=== PATIENT | female | born 1960 | race Caucasian/White ===

== ENCOUNTER 2016-12-05 10:00 | Inpatient (IN) ==
[2016-12-05] MEDS ORDERED: TYLENOL PO ONE (10:11)
[2016-12-05] MEDS ORDERED: NS 1,000 ML IV ONE ×2 (10:11→10:30)
[2016-12-05] MEDS ORDERED: MORPHINE IV ONE (10:30)
[2016-12-05] MEDS ORDERED: ZOFRAN IV ONE (10:30)
--- NOTE | 2016-12-05 10:52 | Diag Imaging Result Doc PS360 ---
FLAT/UPRIGHT ABD/1 VIEW CHEST - 12/05/2016 INDICATION: Abd pain with fever TECHNIQUE: Three views COMPARISON: 10/20/2013 FINDINGS: The chest is clear. There is a nonobstructive bowel gas pattern. No free air or abnormal calcifications. IMPRESSION: Negative exam. Electronically signed by Wilfred Babb 12/05/2016 10:50 AM
[2016-12-05 11:13] LABS: URINE CULTURE NEEDED? NO; URINE MICRO REVIEW NEEDED? NO; URINE SOURCE CLEAN CATCH
[2016-12-05 11:18] LABS: BILIRUBIN URINE NEGATIVE (NEGATIVE); BLOOD URINE NEGATIVE (NEGATIVE); GLUCOSE URINE NEGATIVE (NEGATIVE); LEUKOCYTES URINE NEGATIVE (NEGATIVE); NITRITE URINE NEGATIVE (NEGATIVE); PROTEIN URINE NEGATIVE (NEGATIVE); TURBIDITY URINE CLEAR (CLEAR); UROBILINOGEN URINE NORMAL (NORMAL)
[2016-12-05 11:25] LABS: AGAP 18; ALBUMIN 3.7 g/dL (3.5-5.0); ALKALINE PHOSPHATASE 140 U/L (32-104); AMYLASE 727 U/L (20-200); BUN 2 mg/dL (8-22); CHLORIDE 79 mmol/L (98-107); COSMO 238; GOT 64 U/L (10-30); GPT 19 U/L (10-36); LIPASE 297 U/L (13-60); POTASSIUM 4.1 mmol/L (3.5-5.1); TCO2 23 mmol/L (25-35); TOTAL BILIRUBIN 0.37 mg/dL (0.20-1.00)
[2016-12-05 11:42] LABS: SODIUM 120 mmol/L (136-145)
[2016-12-05 12:02] LABS: COLOR YELLOW; SP GRAVITY URINE 1.001
[2016-12-05 12:05] LABS: BASO% 0.8 % (0.0-0.8); EOS# 0.04 X1000 (0.0-0.7); EOS% 0.6 % (0.0-10.0); HEMATOCRIT 31.2 % (37.0-47.0); HEMOGLOBIN 10.4 g/dL (12.0-16.0); LYMPH# 0.54 X1000 (1.2-3.4); LYMPH% 7.4 % (20.5-51.1); MANUAL DIFF NEEDED? NO; MCH 26.2 PG (27-31); MCHC 33.3 g/dL (33-37); MCV 78.6 FL (81-99); MONO# 0.88 X1000 (0.11-0.59); MONO% 12.1 % (1.7-9.3); MPV 9.4 FL (7.4-10.4); NEUT% 79.1 % (42.2-75.2); PLT 209 X1000 (130-400); RBC 3.97 XMIL (4.2-5.4)
[2016-12-05 12:08] LABS: UR EPITHELIAL CELLS <10 /HPF (<10); URINE BACTERIA NEGATIVE /HPF; URINE RBC <10 /HPF (<10); URINE WBC <10 /HPF (<10)
--- NOTE | 2016-12-05 12:39 | Diag Imaging Result Doc PS360 ---
CT ABD/PELVIS W/ IV CONT ONLY - 12/05/2016 INDICATION: Abd pain TECHNIQUE: A CT dose reduction protocol was used. COMPARISON: None FINDINGS: The lung bases are clear and the heart size is normal. There is fatty change of the liver. The liver is also somewhat atrophic. No liver masses. There is [id number] ascites. Spleen size is normal. There is a small cystic area at the uncinate process of the pancreas measuring 11 mm. This is nonspecific. No biliary dilation. The gallbladder, adrenals, and kidneys are normal. There are a couple of small 1 cm enhancing nodules at the uterine fundus. The uterus is otherwise atrophic and unremarkable. Urinary bladder and rectum are normal. There are moderate degenerative changes of the spine. No acute or suspicious bony lesion. IMPRESSION: 1. Small to moderate ascites. 2. Very fatty, mildly atrophic liver. 3. Tiny cystic area in the pancreatic uncinate process, nonspecific. 4. Tiny enhancing nodules at the uterine fundus. Electronically signed by Wilfred Babb 12/05/2016 12:37 PM
--- NOTE | 2016-12-05 13:17 | PROVIDER DOCUMENTATION ---
This chart was entered by Loren Nicholson Scribe, acting as scribe for Bárbara Hunter MD. HPI-Abdominal Pain/GI Problem - General Chief Complaint: Possible Sepsis-D Stated Complaint: LOWER ABD PAIN Time Seen by Provider: 12/05/16 10:09 Source: patient Allergies/Adverse Reactions: Patient Allergies Allergy/AdvReac Type Severity Reaction Status Date / Time Penicillins Allergy Unknown "NIRAV SAID Verified 05/02/15 16:16 DON'T TAKE" Home Medications: Home Medication List Medication Instructions Recorded Confirmed Last Taken Type Ibuprofen [Motrin] 600 mg PO Q8H PRN PRN #30 tablet 05/02/15 12/05/16 Unknown Rx Omeprazole [Prilosec] 20 mg PO DAILY 05/02/15 12/05/16 05/02/15 07:00 History - History of Present Illness-ABD Nature of Presenting Problems: 56 yo F presents to the ER with complaint of abdominal swelling, fever, and abdominal pain x 2 days. Sister reports pt having a similar episode in October and again x2 weeks ago. Denies any urinary symptoms, CP, or SOB. Has a hx of IBS but states this does not feel typical to that. Abdominal Pain Onset Location: reports: generalized abdomen Pain Radiation: reports: no radiation Onset/Duration: reports: 2 days ago Timing: reports: still present Review of Systems - Adult - REVIEW OF SYSTEMS - ADULT Constitutional: denies: chills, fever Eyes: reports: no symptoms reported Ears, Nose, Mouth & Throat: reports: no symptoms reported Cardiovascular: denies: chest pain, palpitations Respiratory: denies: cough, shortness of breath Gastrointestinal: reports: abdominal pain. denies: diarrhea, nausea, vomiting Genitourinary: denies: dysuria, hematuria Musculoskeletal: reports: no symptoms reported Integumentary: reports: no symptoms reported Neurological: reports: no symptoms reported Psychiatric: reports: no symptoms reported Endocrine: reports: no symptoms reported Hematologic/Lymphatic: reports: no symptoms reported Allergic/Immunologic: reports: no symptoms reported All Other Systems: Reviewed and Negative Past History - Adult - PAST MEDICAL HISTORY-ADULT Review of Records: reports: Nursing Assessment Review, Medications Reviewed Respiratory: reports: COPD Gastrointestinal: reports: GERD, IBS - IMMUNIZATION STATUS Childhood Immunizations: See Nurse Assessment Flu Vaccine: See Nurse Assessment - SOCIAL HISTORY Smoking: greater than 1 pack/day Provider spent 3-5 mins advising pt. on dangers of tobacco.: Discussed manners to quit use, and f/u contacts for add'l counseling. Substance Use: alcohol Alcohol Use Frequency: every day Number of drinks per typical drinking period:: 11-15 drinks ("1/2 case a day") Physical Exam-General - PHYSICAL EXAM-ADULT Initial Vital Signs Reviewed: Yes - CONSTITUTIONAL General Appearance: alert, no apparent distress - EYES Eyes: PERRL/EOMI, pink conjunctivae - HEAD, EARS, NOSE, MOUTH & THROAT HENMT: normocephalic/atraumatic, normal ENT inspection - NECK Neck: supple, normal inspection - RESPIRATORY Respiratory: no respiratory distress, no accessory muscle use - CARDIOVASCULAR Cardiovascular: normal peripheral pulses, regular rate, rhythm - GASTROINTESTINAL (ABDOMEN) Abdominal Exam: abnormal bowel sounds (hypoactive), distended, tenderness ( generalized) - MUSCULOSKELETAL Back Exam: no CVA tenderness, no vertebral tenderness Extremity: normal gait, normal inspection - SKIN Integumentary: normal color, warm/dry - NEUROLOGIC Neurologic: grossly normal, no motor/sensory deficits - PSYCHIATRIC Psych/Mental Status: normal mood/affect, normal thought content, normal thought process, oriented x 3 Progress - PLAN OF CARE/RESULTS Progress/Plan/Lab Results: Vital Signs - 8 hr 12/05/16 10:02 Temperature 99.9 F H Pulse Rate 120 H Respiratory Rate 20 Blood Pressure 147/95 O2 Sat by Pulse Oximetry 96 Orders Category Date Time Status Saline Loc DIRECTED Care 12/05/16 10:11 Active NPO Diet 12/05/16 10:[address] ABD/PELVIS W/ IV CONT ONLY [CT] Stat Exams 12/05/16 10:30 Ordered FLAT/UPRIGHT ABD/1 VIEW CHEST [RAD] Stat Exams 12/05/16 10:11 Ordered AMYLASE [CHEM] Stat Lab 12/05/16 10:41 Ordered BLOOD CULTURE [BLDCUL] Stat Lab 12/05/16 10:11 Uncollected CBC WITH ELECTRONIC DIFF [HEME] Stat Lab 12/05/16 10:41 Ordered COMPREHENSIVE METABOLIC PANEL [CHEM] Stat Lab 12/05/16 10:41 Ordered LACTATE, PLASMA [CHEM] Stat Lab 12/05/16 10:41 Ordered LIPASE [CHEM] Stat Lab 12/05/16 10:41 Ordered PRO B-NATRIURETIC PEPTIDE Stat Lab 12/05/16 10:41 Ordered TROPONIN T Stat Lab 12/05/16 10:41 Ordered URINALYSIS W/POSS RFLX CULT-1 [URINALYSIS] Stat Lab 12/05/16 10:11 Uncollected 0.9% Sodium Chloride Inj [Ns] 1,000 ml Med 12/05/16 10:30 Active IV 150 mls/hr 0.9% Sodium Chloride Inj [Ns] 1,000 ml Med 12/05/16 10:11 Active IV 999 mls/hr Acetaminophen [Tylenol] Med 12/05/16 10:11 Discontinued 1,000 mg PO NOW ONE Morphine Med 12/05/16 10:30 Discontinued 4 mg IV NOW ONE Ondansetron [Zofran] Med 12/05/16 10:30 Discontinued 4 mg IV NOW ONE Result Diagrams: 12/05/16 10:35 12/05/16 10:35 - XRAY 1 XRAY Study: Chest, Abdomen Impression: Normal (negative, per radiologist) - CT/MRI 1 CT Study: Abdomen Impression: Abnormal (small to moderate ascites. very fatty, mildly atrophic liver. tiny cystic area int he pancreatic uncinate process, nonspecific. tiny enhancing nodules at the uterine fundus. per radiologist.) - CONSULTS/PCP/HOSPITALIST Notification #1 *Consult/PCP/Hospitalist*: Mindy/Dr. Garcia Time Discussed: 13:17 Consult Disposition: Will see in ED, Admit Departure - Departure Date of Disposition Decision: 12/05/16 Time of Disposition Decision: 13:12 DIAGNOSIS: Hyponatremia, Pancreatitis, ETOH abuse Disposition: ADMITTED INPATIENT 09 Certified Medical Emergency: Emergent Condition: Stable Referrals and Follow-Ups: None,PCP [Primary Care Provider] - - Critical Care Note This patient required my direct & personal management of CC.: Yes Total Time (mins): 30 Critical Care Statement: This patient required my direct personal management to treat or rule out processes, the absence of which, could potentiallly result in sudden, clinically significant life or limb threatening deterioration. This chart was documented by the indicated scribe, (Loren Nicholson Scribe) and accurately reflects the services I performed and decisions made by me, Bárbara Hunter MD, as attested by the provider's signature.
[2016-12-05] MEDS ORDERED: ATIVAN IV ONE (13:18)
[2016-12-05] MEDS ORDERED: M.V.I.-12 10 ML, FOLIC ACID 1 MG, MAGNESIUM SULFATE 1 GM, THIAMINE 100 MG in NS 1,000 ML IV SCH (14:45)
[2016-12-05] MEDS ORDERED: M.V.I.-12 10 ML, FOLIC ACID 1 MG, MAGNESIUM SULFATE 1 GM, THIAMINE 100 MG in NS 1,000 ML IV ONE (15:00)
--- NOTE | 2016-12-05 15:01 | HISTORY AND PHYSICAL ---
HISTORY OF PRESENT ILLNESS: This is a 56-year-old white female. She states for 10 years now she has drank a half case a day beer. Smokes about 1-1/2 packs. She was here 2 years ago on 10/19/2013. At that time she had nausea and vomiting, shortness of breath. I think they did an EGD, found a hiatal hernia and told she may have early cirrhosis. She had hyponatremia at that time too. PAST MEDICAL HISTORY: COPD, alcoholic, mild cirrhosis at least that was report and gastroesophageal reflux disease. Only surgeries she has had a . ALLERGIES: No known drug allergies. MEDICATIONS: She is on omeprazole, that is her only medication. FAMILY HISTORY: Sister of breast cancer. Mother of ovarian cancer. She has history of lung cancer, sister with breast cancer. SOCIAL HISTORY: Works at a [employer]. She has been hurting now for 2 months off and on the epigastrium, came to emergency room, found elevated amylase and lipase, also hyponatremia and consistent with acute pancreatitis. REVIEW OF SYSTEMS: General: She does not notice any weight gain or loss. No fever, chills. HEENT: Unremarkable. Respiratory: No increased work of breathing or dyspnea. Cardiovascular: No chest pain or tachy palpitation. GI/: She has abdominal pain and some nausea. No melena or gross hematuria. Endocrinologic/hematologic: No significant . EXAM: Vital Signs: Temperature 98.8 degrees, pulse 89, respirations 16, blood pressure 129/84. HEENT: Pupils are equal, round. Lungs: Clear in all lung healy. Cardiovascular: Regular rhythm, rate without murmur or S3. Abdomen: Soft, tender in the epigastric, left upper quadrant, belly slightly with some guarding. Skin: Warm and dry. Extremities: No pedal edema. Weight 125 pounds, height 5 feet 5 inches. LAB WORK: White count 7260, hematocrit 31, platelet count 209,000. Sodium 120, potassium 4.1, chloride 79, bicarb 23, BUN 2, creatinine 0.4, blood sugar 96, AST 64, ALT is 19, alkaline phosphatase 140, albumin 3.7, amylase 727, lipase 297, lactate levels 1.3. Urinalysis unremarkable. She had an abdominal pelvic CT done, small to moderate ascites, very fatty, mildly atrophic liver, tiny cyst area in the pancreatic uncinate process, nonspecific tiny enhancing nodules in the uterine fundus and abdominal x-ray negative exam. ASSESSMENT AND PLAN: 1. Alcoholic pancreatitis. Hold alcohol, will give her clear liquids. Do not feel she needs an NG tube at this point, give her normal saline, pain control with antiemetics. 2. Hyponatremia secondary to alcoholism. Will give her normal saline run at 85 mL an hour and we will check her urine for sodium, creatinine, osmolality, we will check T4 and TSH, B12 and folate, her magnesium level. 3. Alcohol dependence high probable steinberg of alcohol withdrawal and then even delirium tremens. Will let her have some Librium p.o. q.6 hours p.r.n. and will follow her clinically. 4. History of chronic obstructive pulmonary disease, good air, gas exchange present time, put her on some O2. 5. History of hiatal hernia. Put her on proton pump inhibitor. High probability of gastritis as well. cc: Bruce Garcia MD
[2016-12-05] MEDS ORDERED: LIBRIUM PO PRN (16:34)
[2016-12-05] MEDS ORDERED: ZOFRAN IV PRN (16:34)
[2016-12-05] MEDS ORDERED: NS 1,000 ML IV SCH (16:34)
[2016-12-05] MEDS: NICODERM PATCH TD SCH (16:49)
[2016-12-05] MEDS: ATROVENT NEB INH SCH ×3 (16:59→23:10)
[2016-12-05] MEDS: XOPENEX NEB INH SCH ×3 (16:59→23:11)
[2016-12-05] MEDS: PULMICORT INH SCH (19:31)
[2016-12-05] MEDS: ATIVAN IV PRN (22:29)
[2016-12-06] MEDS: LIBRIUM PO SCH ×5 (01:15→23:10)
[2016-12-06] MEDS: ATIVAN IV PRN ×4 (02:22→20:44)
[2016-12-06] MEDS: ATROVENT NEB INH SCH ×5 (03:56→19:39)
[2016-12-06] MEDS: XOPENEX NEB INH SCH ×5 (03:57→19:39)
[2016-12-06 05:16] LABS: MANUAL DIFF NEEDED? NO
[2016-12-06 05:20] LABS: EOS# 0.08 X1000 (0.0-0.7); EOS% 1.7 % (0.0-10.0); HEMATOCRIT 31.1 % (37.0-47.0); HEMOGLOBIN 10.3 g/dL (12.0-16.0); IMM GRAN# 0.07 X1000 (0.0-0.04); IMM GRAN% 1.5 % (0.0-0.5); LYMPH# 0.64 X1000 (1.2-3.4); LYMPH% 13.4 % (20.5-51.1); MCH 25.8 PG (27-31); MCHC 33.1 g/dL (33-37); MCV 77.9 FL (81-99); MONO# 0.76 X1000 (0.11-0.59); MONO% 15.9 % (1.7-9.3); MPV 9.1 FL (7.4-10.4); NEUT% 66.5 % (42.2-75.2); PLT 213 X1000 (130-400); RBC 3.99 XMIL (4.2-5.4)
[2016-12-06 05:27] LABS: INR 1.13; PTT 32.7 Seconds (22.0-36.0)
[2016-12-06 05:57] LABS: AGAP 14; ALKALINE PHOSPHATASE 115 U/L (32-104); BUN 3 mg/dL (8-22); CHLORIDE 89 mmol/L (98-107); COSMO 253; GOT 39 U/L (10-30); GPT 13 U/L (10-36); MAGNESIUM 1.1 mg/dL (1.5-2.7); POTASSIUM 2.9 mmol/L (3.5-5.1); SODIUM 128 mmol/L (136-145); TCO2 25 mmol/L (25-35); TOTAL BILIRUBIN 0.36 mg/dL (0.20-1.00); TOTAL PROTEIN 7.1 g/dL (6.3-8.3)
[2016-12-06] MEDS: PULMICORT INH SCH ×2 (07:45→19:39)
[2016-12-06] MEDS ORDERED: MAGNESIUM SULFATE 2 GM/S.W.I. 2 GM/50 ML IVPB IV ONE (09:00)
[2016-12-06] MEDS: NICODERM PATCH TD SCH (09:03)
[2016-12-06] MEDS: POTASSIUM CHLORIDE 20 MEQ/SWI 20 MEQ/100 ML IVPB IV SCH ×2 (09:03→11:27)
[2016-12-06] MEDS: PRILOSEC PO SCH (09:04)
[2016-12-06] MEDS: MAG-OX PO SCH ×2 (09:04→20:43)
[2016-12-06] MEDS: KLOR-CON PO SCH (09:04)
--- NOTE | 2016-12-06 09:40 | PROGRESS NOTE ---
DATE: 12/06/2016 SUBJECTIVE: Ms. Caldera is doing a little better. She did get agitated and confused last night. She of course want to go home. She is also asking for food. She still had some tenderness in the epigastrium. PHYSICAL EXAMINATION: Vital Signs: Temperature is 100 degrees, pulse 113, respirations 20, blood pressure 137/82. HEENT: Pupils are equal and round. Lungs: Are clear in all lung healy. Cardiovascular Examination: Regular rhythm and rate without murmur or S3. Abdomen: Soft. She is tender in the epigastrium and the left upper quadrant. Is and Os: Urine output is 3000 L. LABORATORY DATA: White count 4790, hematocrit 31, platelet count 213,000. Sodium 128 which has come up from 120. Potassium 2.9, chloride 89, bicarb 25, BUN 3, creatinine 0.4. Magnesium 1.1, albumin 3. Her transaminase, AST came down from 64 to 39, ALT is 13. ASSESSMENT AND PLAN: 1. Alcoholic pancreatitis. Encouraged her to quit alcohol, stay off alcohol. She is going through some alcohol withdrawal symptoms, although fairly mild at this point. She is approaching a point where she may go into delirium tremens. She does have a little nausea, still has some abdominal pain but she is asking for food. 2. Hyponatremia secondary to alcoholism and poor nutrition. Continue present intravenous fluids. On clear liquids. Probably advance to full liquids tomorrow. Check T4 and TSH. I am not sure if we have those values back yet. TSH was 2.9. Cortisol level looked good at 12.8. 3. History of chronic obstructive pulmonary disease. Good air and gas exchange at this time. 4. History of hiatal hernia. 5. We will supplement some potassium and magnesium today. cc: Bruce Garcia MD
[2016-12-06] MEDS: M.V.I.-12 10 ML, FOLIC ACID 1 MG, MAGNESIUM SULFATE 1 GM, THIAMINE 100 MG in NS 1,000 ML IV SCH (16:56)
[2016-12-07] MEDS: ATIVAN IV PRN ×5 (03:14→23:04)
[2016-12-07] MEDS: XOPENEX NEB INH SCH ×7 (03:26→23:19)
[2016-12-07] MEDS: ATROVENT NEB INH SCH ×7 (03:26→23:19)
[2016-12-07] MEDS: LIBRIUM PO SCH ×4 (05:27→22:28)
--- NOTE | 2016-12-07 05:32 | EKG Report ---
Test Performed on : 12/06/2016 06:23:52 AM Test Reason : chest pain Blood Pressure : / mmHG Vent. Rate : 111 BPM Atrial Rate : 111 BPM P-R Int : 190 ms QRS Dur : 072 ms QT Int : 326 ms P-R-T Axes : 072 054 045 degrees QTc Int : 443 ms Sinus tachycardia. with premature atrial complexes. Anteroseptal infarct , age undetermined Abnormal ECG No previous ECGs available Confirmed by Sonny RODNEY, Jose J Kincaid ([id number]) on 12/08/2016 2:15:12 PM
[2016-12-07 05:46] LABS: AGAP 14; ALKALINE PHOSPHATASE 101 U/L (32-104); AMYLASE 314 U/L (20-200); BUN 1 mg/dL (8-22); CALCIUM 7.9 mg/dL (8.8-10.2); CHLORIDE 87 mmol/L (98-107); COSMO 250; GOT 30 U/L (10-30); GPT 11 U/L (10-36); LIPASE 134 U/L (13-60); MAGNESIUM 1.1 mg/dL (1.5-2.7); SODIUM 126 mmol/L (136-145); TCO2 25 mmol/L (25-35); TOTAL BILIRUBIN 0.29 mg/dL (0.20-1.00); TOTAL PROTEIN 6.7 g/dL (6.3-8.3)
[2016-12-07] MEDS: PULMICORT INH SCH ×2 (07:35→19:55)
[2016-12-07] MEDS ORDERED: MAGNESIUM SULFATE 2 GM/S.W.I. 2 GM/50 ML IVPB IV ONE (08:13)
--- NOTE | 2016-12-07 08:46 | PROGRESS NOTE ---
DATE: 12/07/2016 SUBJECTIVE: Ms. Caldera feels a lot better she says. She is requesting food. No abdominal tenderness right now. OBJECTIVE: Vital Signs: Temperature 100.8 degrees, I think that is her T-max, pulse 127, respirations 18, blood pressure 140/90. Lungs: Clear in all lung healy. Cardiovascular: Regular rhythm and rate, without murmur or S3. Abdomen: Soft. Skin: Warm and dry. Urine output 3 L. LAB: White count 4790, hematocrit 31, platelet count 213,000. Chemistries: Lipase down to 134, amylase 314, we will try a little soft GI diet. ASSESSMENT AND PLAN: 1. Alcoholic pancreatitis. Enzymes coming down. She is very hungry, pain. Will try soft GI diet and see how we do. 2. Hyponatremia secondary alcoholism. Poor nutrition. Sodium 126, potassium 3.0, bicarb 25, creatinine 0.3. We will try a soft GI diet. Gave her potassium and magnesium yesterday. This morning I will give her a little bit magnesium and potassium IV. cc: Bruce Garcia MD
[2016-12-07] MEDS ORDERED: TESSALON PO PRN (08:50)
[2016-12-07] MEDS: KLOR-CON PO SCH (09:09)
[2016-12-07] MEDS: MAG-OX PO SCH ×2 (09:09→21:08)
[2016-12-07] MEDS: PRILOSEC PO SCH (09:09)
[2016-12-07] MEDS: POTASSIUM CHLORIDE 20 MEQ/SWI 20 MEQ/100 ML IVPB IV SCH ×2 (09:10→11:46)
[2016-12-07] MEDS: NICODERM PATCH TD SCH (09:10)
[2016-12-07] MEDS: M.V.I.-12 10 ML, FOLIC ACID 1 MG, MAGNESIUM SULFATE 1 GM, THIAMINE 100 MG in NS 1,000 ML IV SCH (16:03)
[2016-12-08] MEDS: XOPENEX NEB INH SCH ×5 (04:21→20:05)
[2016-12-08] MEDS: ATROVENT NEB INH SCH ×5 (04:22→20:05)
[2016-12-08] MEDS: LIBRIUM PO SCH ×4 (05:12→22:41)
[2016-12-08 05:58] LABS: AGAP 15; BUN 3 mg/dL (8-22); CALCIUM 8.5 mg/dL (8.8-10.2); CHLORIDE 86 mmol/L (98-107); COSMO 250; MAGNESIUM 1.7 mg/dL (1.5-2.7); POTASSIUM 3.7 mmol/L (3.5-5.1); SODIUM 126 mmol/L (136-145); TCO2 25 mmol/L (25-35)
[2016-12-08] MEDS: PULMICORT INH SCH ×2 (07:21→20:05)
[2016-12-08] MEDS: ATIVAN IV PRN ×4 (08:08→22:41)
[2016-12-08] MEDS: MAG-OX PO SCH ×2 (08:08→21:41)
[2016-12-08] MEDS: NICODERM PATCH TD SCH (08:08)
[2016-12-08] MEDS: KLOR-CON PO SCH (08:08)
[2016-12-08] MEDS: PRILOSEC PO SCH (08:09)
[2016-12-08] MEDS ORDERED: CALMOSEPTINE OINTMENT TOP PRN (09:05)
--- NOTE | 2016-12-08 10:33 | PROGRESS NOTE ---
DATE: 12/08/2016 SUBJECTIVE: She is much more awake and alert today. She is tolerating the food well, eating well. She has no complaints this morning. Visual hallucinations, I do think she had some delirium tremens starting yesterday. PHYSICAL EXAMINATION: Vital Signs: Temperature 97.9 degrees, pulse 99, respirations 24, and blood pressure 140/83. HEENT: Pupils are equal and round. Lungs: Are clear in all lung ehaly. Cardiovascular Examination: Regular rhythm and rate without murmur or S3. Abdomen: Is soft. Skin: Is warm and dry. Is and Os: Urine output 1800 mL. LABORATORY DATA: White count 4790, hematocrit 31, platelet count 213,000. Sodium 126, potassium 3.7, chloride 86, BUN 3, creatinine 0.3, magnesium was 1.7. Amylase came down to 312 and lipase was 134. No abdominal pain right now, tolerating food. ASSESSMENT AND PLAN: 1. Alcoholic pancreatitis, improved clinically and she is eating. Pancreatic enzymes have come down. 2. Hyponatremia secondary to alcoholism and poor p.o. sodium. This has improved as well. 3. Nutrition. Encourage p.o. intake. 4. Alcohol withdrawal which I think she went into a little bit of delirium tremens yesterday but is doing much better today. Continue her Librium and Ativan as needed. 5. Review of her orders. She is getting Tessalon Perles 200 mg t.i.d., Librium 25 mg q.6 hours, ipratropium bromide inhaler q.4 hours p.r.n., levalbuterol nebulizers which is Xopenex 1.25 mg q.4 hours p.r.n. She is not having really any bronchospasm. Ativan 1 mg IV q.4 hours p.r.n., magnesium oxide 800 mg b.i.d., multivitamin 1 a day, nicotine patch 20 mg daily, Prilosec 40 mg a day, and potassium chloride 40 mEq p.o. daily. We will check enzymes and electrolytes again in the morning. Hopefully, she can go home tomorrow morning. Family has talked about the followup and they realize that the propensity for her to drink again is pretty high. She is not willing to go to rehab so hopefully we can at least discourage her to drink less alcohol with the hopes that she could quit. cc: Bruce Garcia MD
[2016-12-08] MEDS: M.V.I.-12 10 ML, FOLIC ACID 1 MG, MAGNESIUM SULFATE 1 GM, THIAMINE 100 MG in NS 1,000 ML IV SCH (16:38)
[2016-12-09] MEDS: LIBRIUM PO SCH (05:12)
[2016-12-09] MEDS: ATIVAN IV PRN (05:25)
[2016-12-09 07:16] LABS: AGAP 14; ALBUMIN 2.9 g/dL (3.5-5.0); ALKALINE PHOSPHATASE 112 U/L (32-104); BUN 5 mg/dL (8-22); CALCIUM 8.4 mg/dL (8.8-10.2); CHLORIDE 91 mmol/L (98-107); COSMO 258; GOT 23 U/L (10-30); GPT 10 U/L (10-36); MAGNESIUM 1.6 mg/dL (1.5-2.7); POTASSIUM 3.4 mmol/L (3.5-5.1); SODIUM 130 mmol/L (136-145); TCO2 25 mmol/L (25-35); TOTAL BILIRUBIN 0.42 mg/dL (0.20-1.00); TOTAL PROTEIN 7.2 g/dL (6.3-8.3)
[2016-12-09 07:47] VITALS: BP 104/62
[2016-12-09] MEDS: ATROVENT NEB INH SCH (07:49)
[2016-12-09] MEDS: XOPENEX NEB INH SCH (07:49)
[2016-12-09] MEDS: NICODERM PATCH TD SCH (09:01)
[2016-12-09] MEDS: PRILOSEC PO SCH (09:01)
[2016-12-09] MEDS: MAG-OX PO SCH (09:01)
[2016-12-09] MEDS: KLOR-CON PO SCH (09:01)
--- NOTE | 2016-12-09 09:58 | DISCHARGE SUMMARY ---
ADMISSION DATE: 12/05/2016 DISCHARGE DATE: 12/09/2016 HISTORY OF PRESENT ILLNESS: The patient is a 56-year-old who states for 10 years now she has drunk a half a case of beer and smokes about 1-1/2 packs a day. She was here 3 years ago on 10/19/2013. At that time, she had nausea, vomiting, and shortness of breath. On EGD, she was found to have a hiatal hernia and some early liver cirrhosis. She had some hyponatremia at that time, too. She presented this time with abdominal pain and was found to have pancreatitis with, again, hyponatremia. PAST MEDICAL HISTORY: COPD, alcoholism, mild cirrhosis, and the gastroesophageal reflux. She has had a in the past. HOSPITAL COURSE: Her food was held, on just clear liquids, although she was requesting food, and we held food for 48 hours. Her abdominal pain subsided, and we were able to advance her diet. She did go through some mild withdrawal and had some early delirium tremens. We treated that with Librium and Ativan She was eating and advanced her diet, and she wanted to go home. Family wanted to take her home. We spoke to her directly several times that it was important to stop the alcohol. Note that she has a mild microcytic anemia, hematocrit 31, hemoglobin 10, MCV of 77, would like her to be on some iron. Sodium came up to 130. She presented with 128. Amylase and lipase came down. We will let her go home. DISCHARGE MEDICATIONS: We gave her some Tessalon Perles for her cough. She is on inhaler 0.5 b.i.d. Will give her Librium. We did explain that Librium and alcohol do not mix, that she is not to take them both together. She assured me she is not going to drink any more. Magnesium oxide 800 mg b.i.d., multivitamin once a day, NicoDerm patch, Prilosec 20 mg a day, and Klor-Con 40 mEq daily. FOLLOWUP: I want her to get primary care to follow up, and the family has talked about the possibility cc: Bruce Garcia MD
[2016-12-09] MEDS ORDERED: PNEUMOVAX 23 IM ONE (10:00)
== END 2016-12-09 10:54 | disposition home or self-care (01) ==
LOC: ED 10:00 → 3S 15:44 → SUATTDRO 15:44 → 3S 12-07 18:42
PROVIDERS: ATTEND Internal Medicine

== ENCOUNTER 2017-01-09 14:51 | Inpatient (IN) ==
[2017-01-09 15:24] LABS: MANUAL DIFF NEEDED? NO
[2017-01-09 15:34] LABS: EOS# 0.05 X1000 (0.0-0.7); EOS% 1.2 % (0.0-10.0); HEMATOCRIT 36.8 % (37.0-47.0); HEMOGLOBIN 12.4 g/dL (12.0-16.0); IMM GRAN# 0.03 X1000 (0.0-0.04); IMM GRAN% 0.7 % (0.0-0.5); LYMPH# 0.69 X1000 (1.2-3.4); LYMPH% 16.4 % (20.5-51.1); MCH 27.8 PG (27-31); MCHC 33.7 g/dL (33-37); MCV 82.5 FL (81-99); MONO# 0.42 X1000 (0.11-0.59); MPV 8.6 FL (7.4-10.4); NEUT% 70.7 % (42.2-75.2); PLT 310 X1000 (130-400); RBC 4.46 XMIL (4.2-5.4)
[2017-01-09 16:00] LABS: AGAP 17; ALBUMIN 3.3 g/dL (3.5-5.0); ALKALINE PHOSPHATASE 127 U/L (32-104); AMYLASE 1688 U/L (20-200); BUN 4 mg/dL (8-22); CALCIUM 8.4 mg/dL (8.8-10.2); CHLORIDE 88 mmol/L (98-107); COSMO 253; GOT 33 U/L (10-30); GPT 9 U/L (10-36); LIPASE 1381 U/L (13-60); POTASSIUM 3.1 mmol/L (3.5-5.1); SODIUM 127 mmol/L (136-145); TCO2 22 mmol/L (25-35); TOTAL BILIRUBIN 0.15 mg/dL (0.20-1.00); TOTAL PROTEIN 7.3 g/dL (6.3-8.3)
[2017-01-09 17:06] LABS: URINE CULTURE NEEDED? NO; URINE MICRO REVIEW NEEDED? NO; URINE SOURCE CLEAN CATCH
[2017-01-09 17:09] LABS: BILIRUBIN URINE NEGATIVE (NEGATIVE); BLOOD URINE NEGATIVE (NEGATIVE); COLOR YELLOW; GLUCOSE URINE NEGATIVE (NEGATIVE); LEUKOCYTES URINE NEGATIVE (NEGATIVE); NITRITE URINE NEGATIVE (NEGATIVE); PROTEIN URINE NEGATIVE (NEGATIVE); SP GRAVITY URINE 1.009; TURBIDITY URINE CLEAR (CLEAR); UR EPITHELIAL CELLS <10 /HPF (<10); URINE BACTERIA NEGATIVE /HPF; URINE RBC <10 /HPF (<10); URINE WBC <10 /HPF (<10); UROBILINOGEN URINE NORMAL (NORMAL)
[2017-01-09] MEDS ORDERED: NS 1,000 ML IV ONE (17:13)
[2017-01-09] MEDS ORDERED: MORPHINE IV ONE (17:14)
[2017-01-09] MEDS ORDERED: ZOFRAN IV ONE (17:14)
--- NOTE | 2017-01-09 17:18 | PROVIDER DOCUMENTATION ---
This chart was entered by Marta Ha Scribe, acting as scribe for Bárbara Hunter MD. HPI-Abdominal Pain/GI Problem - General Chief Complaint: Abdominal Pain Stated Complaint: ABD PAIN Time Seen by Provider: 01/09/17 16:48 Source: patient Allergies/Adverse Reactions: Patient Allergies Allergy/AdvReac Type Severity Reaction Status Date / Time Penicillins Allergy Unknown "NIRAV SAID Verified 01/09/17 17:01 DON'T TAKE" Home Medications: Home Medication List Medication Instructions Recorded Confirmed Last Taken Type Omeprazole [Prilosec] 20 mg PO DAILY 05/02/15 12/05/16 05/02/15 07:00 History Benzonatate [Tessalon] 200 mg PO TID PRN PRN #60 capsule 12/09/16 Unknown Rx Budesonide [Pulmicort] 0.5 mg INH RTBID #120 neb 12/09/16 Unknown Rx Chlordiazepoxide [Librium] 25 mg PO Q6H #40 capsule 12/09/16 Unknown Rx Magnesium Oxide [Mag-Ox] 800 mg PO BID #60 tablet 12/09/16 Unknown Rx Nicotine Patch [Nicoderm Patch] 21 mg TD DAILY #14 patch.td24 12/09/16 Unknown Rx Omeprazole [Prilosec] 40 mg PO DAILY #30 capsule 12/09/16 Unknown Rx Potassium Chloride E.r. [Klor-Con] 40 meq PO DAILY #30 tablet 12/09/16 Unknown Rx - History of Present Illness-ABD Nature of Presenting Problems: Pt is a 56 year old female who came to the ED with a cc of abdominal pain. pt has pancreatitis. Pt reports she drinks everyday and her liver is dying. Abdominal Pain Onset Location: reports: generalized abdomen Pain Radiation: reports: no radiation Quality of Pain: reports: sharp Severity in ED: reports: mild Onset/Duration: reports: just prior to arrival Timing: reports: still present Activities at Onset: reports: none Modifying Factors: improves with: nothing Associated Symptoms: reports: denies symptoms Last BM: unsure Dark Stools Present?: reports: none noticed Rectal Bleeding: reports: none Rectal Pain: reports: none Emesis Description: reports: none Bruising or Bleeding Gums?: No Similar Symptoms Previously?: Yes Recently seen or treated by another doctor?: Yes Review of Systems - Adult - REVIEW OF SYSTEMS - ADULT Constitutional: denies: chills, fever Eyes: reports: no symptoms reported Ears, Nose, Mouth & Throat: denies: ear pain, loose teeth Cardiovascular: reports: no symptoms reported Respiratory: reports: no symptoms reported Gastrointestinal: reports: abdominal pain. denies: diarrhea, nausea, vomiting Genitourinary: reports: no symptoms reported Musculoskeletal: reports: no symptoms reported Integumentary: reports: no symptoms reported Neurological: reports: no symptoms reported Psychiatric: reports: no symptoms reported Endocrine: reports: no symptoms reported Hematologic/Lymphatic: reports: no symptoms reported Allergic/Immunologic: reports: no symptoms reported All Other Systems: Reviewed and Negative Past History - Adult - PAST MEDICAL HISTORY-ADULT Review of Records: reports: Old Records Reviewed, Nursing Assessment Review Major Childhood Illnesses: reports: denies history Cardiovascular: reports: denies history Respiratory: reports: COPD Gastrointestinal: reports: GERD, IBS Obstetrical/Gynecological: reports: denies history Genitourinary: reports: denies history Musculoskeletal: reports: denies history Neurological: reports: denies history Endocrine/Immune: reports: denies history Other Conditions: reports: denies history - PRIOR SURGERIES/PROCEDURES Surgical/Procedure History: reports: reviewed, not pertinent - PRIOR HOSPITALIZATIONS Prior Hospitalizations: reports: for other non-related - IMMUNIZATION STATUS Childhood Immunizations: See Nurse Assessment Flu Vaccine: See Nurse Assessment - FAMILY HISTORY Family History: reviewed, not pertinent - SOCIAL HISTORY Smoking: denies Substance Use: none/never Alcohol Use Frequency: every day Number of drinks per typical drinking period:: 5-10 drinks Physical Exam-General - PHYSICAL EXAM-ADULT Initial Vital Signs Reviewed: Yes - CONSTITUTIONAL General Appearance: alert, cachetic, thin - EYES Eyes: PERRL/EOMI, pink conjunctivae - HEAD, EARS, NOSE, MOUTH & THROAT HENMT: normocephalic/atraumatic, moist mucous membranes - NECK Neck: non-tender, full range of motion - RESPIRATORY Respiratory: chest non-tender, lungs clear, normal breath sounds - CARDIOVASCULAR Cardiovascular: normal peripheral pulses, regular rate, rhythm - GASTROINTESTINAL (ABDOMEN) Abdominal Exam: tenderness - MUSCULOSKELETAL Back Exam: normal inspection, no CVA tenderness Extremity: normal range of motion, non-tender - SKIN Integumentary: normal color, normal turgor - NEUROLOGIC Neurologic: grossly normal - PSYCHIATRIC Psych/Mental Status: normal mood/affect, normal thought content, normal thought process, oriented x 3 Progress - PLAN OF CARE/RESULTS Progress/Plan/Lab Results: Vital Signs - 8 hr 01/09/17 15:06 Temperature 99.8 F H Pulse Rate 121 H Respiratory Rate 20 Blood Pressure 158/91 O2 Sat by Pulse Oximetry 98 Laboratory Results - last 24 hr 01/09/17 01/09/17 01/09/17 15:11 15:11 15:11 WBC 4.21 L RBC 4.46 Hgb 12.4 Hct 36.8 L MCV 82.5 MCH 27.8 MCHC 33.7 RDW Std Deviation 19.8 H Plt Count 310 MPV 8.6 Immature Gran % (Auto) 0.7 H Neut % (Auto) 70.7 Lymph % (Auto) 16.4 L [place] % (Auto) 10.0 H Eos % (Auto) 1.2 Baso % (Auto) 1.0 H Immature Gran # (Auto) 0.03 Neut # (Auto) 2.98 Lymph # (Auto) 0.69 L [place] # (Auto) 0.42 Eos # (Auto) 0.05 Baso # (Auto) 0.04 Sodium 127 L Potassium 3.1 L Chloride 88 L Carbon Dioxide 22 L Anion Gap 17 BUN 4 L Creatinine 0.4 L Estimated GFR/1.73 m2 > 60 BUN/Creatinine Ratio 10 Glucose 119 H Calculated Osmolality 253 Calcium 8.4 L Total Bilirubin 0.15 L AST 33 H ALT 9 L Alkaline Phosphatase 127 H Total Protein 7.3 Albumin 3.3 L Globulin 4.0 Albumin/Globulin Ratio 0.8 Amylase 1688 H Lipase 1381 H Plasma Lactate 1.2 Orders Category Date Time Status NPO Diet 01/09/17 15:17 Active AMYLASE [CHEM] Stat Lab 01/09/17 15:11 Completed CBC WITH ELECTRONIC DIFF [HEME] Stat Lab 01/09/17 15:11 Completed COMPREHENSIVE METABOLIC PANEL [CHEM] Stat Lab 01/09/17 15:11 Completed LACTATE, PLASMA [CHEM] Stat Lab 01/09/17 15:11 Completed LIPASE [CHEM] Stat Lab 01/09/17 15:11 Completed URINALYSIS W/POSS RFLX CULT-1 [URINALYSIS] Stat Lab 01/09/17 16:59 Ordered Result Diagrams: 01/09/17 15:11 01/09/17 15:11 - CONSULTS/PCP/HOSPITALIST Notification #1 *Consult/PCP/Hospitalist*: Dr. Conn Consult Disposition: Will see in ED, Admit Departure - Departure Date of Disposition Decision: 01/09/17 Time of Disposition Decision: 17:17 DIAGNOSIS: Pancreatitis, Cirrhosis, ETOH abuse Disposition: ADMITTED INPATIENT 09 Certified Medical Emergency: Emergent Condition: Stable - Critical Care Note This patient required my direct & personal management of CC.: No This chart was documented by the indicated scribe, (Marta Ha Scribe) and accurately reflects the services I performed and decisions made by me, Bárbara Hunter MD, as attested by the provider's signature.
[2017-01-09] MEDS ORDERED: LR 1,000 ML IV ONE (18:00)
[2017-01-09] MEDS: DILAUDID IV PRN ×2 (18:29→22:56)
[2017-01-09] MEDS ORDERED: POTASSIUM CHLORIDE 60 MEQ in NS 500 ML IV ONE (18:30)
[2017-01-09] MEDS: ZOFRAN IV PRN (22:55)
[2017-01-09] MEDS: ATIVAN IV PRN (22:56)
[2017-01-10] MEDS ORDERED: LR 1,000 ML IV ONE (02:00)
[2017-01-10] MEDS: LIBRIUM PO SCH ×5 (02:47→21:40)
--- NOTE | 2017-01-10 03:28 | HISTORY AND PHYSICAL ---
PRIMARY CARE PHYSICIAN: The patient does not have a primary care physician. CHIEF COMPLAINT: Abdominal pain for about a week as well as nausea. HISTORY OF PRESENT ILLNESS: Ms. Caldera is a 56-year-old female with a history of heavy alcohol abuse, alcoholic pancreatitis, tobacco dependence who presented to the ER today with a chief complaint of severe epigastric pain associated with nausea but no vomiting. The patient reports that she drinks half a case of beer daily and has been doing this since the age of 21. The patient states that she has been unable to keep solids or liquids down due to the severe pain and resulting nausea. The patient was just discharged from the hospital on 2016 after being admitted for alcoholic pancreatitis. The patient states that she has not tried to quit drinking. In addition, the patient smokes 1-1/2 packs of cigarettes a day. The patient denies having any chest pain, fever, chills or changes in her urination. The patient states that she had seen Dr. Pena several years ago. PAST MEDICAL HISTORY: 1. Alcoholic pancreatitis. 2. Heavy alcohol dependence. 3. Tobacco dependence. 4. Alcohol withdrawal. 5. GERD. PAST SURGICAL HISTORY: . FAMILY HISTORY: The patient's sister of breast cancer. The patient's mother of ovarian cancer. SOCIAL HISTORY: The patient lives at home. The patient smokes 1-1/2 packs of cigarettes a day. The patient drinks half a case of beer daily. The patient denies any illicit drug use. ALLERGIES: Penicillin. HOME MEDICATIONS: 1. Omeprazole 40 mg p.o. daily. 2. NicoDerm patch 21 mg transdermal daily. 3. Pulmicort 0.5 mg inhaled twice a day. 4. Tessalon Perles 200 mg p.o. 3 times a day p.r.n. for cough. REVIEW OF SYSTEMS: All other review of systems is negative. A 12 point review of systems has been performed. Please refer to the history of present illness for pertinent positives and negatives. PHYSICAL EXAMINATION: VITAL SIGNS: Temperature 99.8 degrees, blood pressure 124/95, heart rate 103, respirations 18, O2 saturations 99% on room air. GENERAL: This is a thin, malnourished female lying on the stretcher in no acute distress. SKIN: No rashes. No lesions. Normal capillary refill. HEENT: Head normocephalic, atraumatic. Eyes: Conjunctiva clear, EOMI, PERRLA. NECK: Supple. No JVD. No lymphadenopathy. LUNGS: Clear to auscultation bilaterally. No wheezes. No rales. No rhonchi. ABDOMEN: Positive bowel sounds. Soft, positive for epigastric tenderness. No rebound tenderness. EXTREMITIES: No edema. No cyanosis. No calf tenderness. NEUROLOGIC: The patient is alert and oriented x3. LABS: White blood cell count 4.2, hemoglobin 12, hematocrit 36, platelets 310, 000. Sodium 127, potassium 3.1, chloride 88, CO2 22, BUN 4, creatinine 0.4, glucose 119, calcium 8.4. AST 33, ALT 9, alkaline phosphatase 127, albumin 3.3, amylase 1688, lipase 1381. UA negative. ASSESSMENT AND PLAN: 1. Alcoholic pancreatitis. The patient will remain nothing per oral. The patient will be started on lactated Ringer. We will provide as needed antiemetics and pain medication. We will trend the lipase level. We will also check an abdominal ultrasound in the morning. 2. Heavy alcohol dependence. The patient is at high risk for delirium tremens. The patient has been started on Librium and will be provided with as needed Ativan. 3. Tobacco dependence. We will continue on the NicoDerm patch. 4. Hypokalemia. We will replace the potassium. 5. Hyponatremia. The patient has been started on intravenous fluids. We will monitor the sodium level closely. 6. Deep vein thrombosis prophylaxis. The patient will be placed on sequential compression devices. 7. Gastrointestinal prophylaxis. The patient has been started on intravenous Nexium. 8. The plan of care was discussed with the patient and her family at the bedside. cc: MD DAVID Mercado
[2017-01-10] MEDS: NICODERM PATCH TD SCH ×2 (05:20→09:10)
[2017-01-10 05:44] LABS: MANUAL DIFF NEEDED? NO
[2017-01-10 05:52] LABS: BASO% 0.7 % (0.0-0.8); EOS% 2.5 % (0.0-10.0); HEMATOCRIT 34.2 % (37.0-47.0); HEMOGLOBIN 11.3 g/dL (12.0-16.0); IMM GRAN# 0.06 X1000 (0.0-0.04); IMM GRAN% 1.5 % (0.0-0.5); LYMPH# 1.34 X1000 (1.2-3.4); LYMPH% 33.3 % (20.5-51.1); MCH 27.8 PG (27-31); MONO# 0.54 X1000 (0.11-0.59); MONO% 13.4 % (1.7-9.3); MPV 8.8 FL (7.4-10.4); NEUT% 48.6 % (42.2-75.2); PLT 301 X1000 (130-400); RBC 4.07 XMIL (4.2-5.4)
[2017-01-10 06:24] LABS: HEMOGLOBIN A1C 4.8 % (4.8-6.0)
[2017-01-10 06:26] LABS: AGAP 13; ALBUMIN 2.8 g/dL (3.5-5.0); ALKALINE PHOSPHATASE 109 U/L (32-104); AMYLASE 972 U/L (20-200); BUN 4 mg/dL (8-22); CALCIUM 7.9 mg/dL (8.8-10.2); CHLORIDE 92 mmol/L (98-107); COSMO 262; GOT 29 U/L (10-30); GPT 11 U/L (10-36); POTASSIUM 3.9 mmol/L (3.5-5.1); SODIUM 132 mmol/L (136-145); TCO2 27 mmol/L (25-35); TOTAL BILIRUBIN 0.14 mg/dL (0.20-1.00); TOTAL PROTEIN 6.4 g/dL (6.3-8.3)
[2017-01-10] MEDS ORDERED: SODIUM PHOSPHATE 30 MMOL in NS 250 ML IV ONE (06:35)
[2017-01-10] MEDS ORDERED: MAGNESIUM SULFATE 2 GM/S.W.I. 2 GM/50 ML IVPB IV ONE ×2 (06:54→14:54)
[2017-01-10] MEDS: DILAUDID IV PRN ×3 (07:21→17:02)
[2017-01-10] MEDS: ZOFRAN IV PRN ×3 (07:21→21:41)
[2017-01-10] MEDS: ATIVAN IV PRN ×4 (07:21→21:40)
[2017-01-10] MEDS: NEXIUM IV SCH (09:06)
[2017-01-10] MEDS: SODIUM CHLORIDE 0.9% INJ SCH (09:06)
[2017-01-10] MEDS: COREG PO SCH ×2 (09:11→21:40)
[2017-01-10] MEDS ORDERED: HUMULIN R SUBQ SCH ×2 (11:00)
--- NOTE | 2017-01-10 13:16 | Diag Imaging Result Doc PS360 ---
EXAM: US ABDOMEN-COMPLETE INDICATION: liver cirrhosis COMPARISON: None. FINDINGS: There is ascites tracking around the liver, spleen, and gallbladder. No gallstones are identified. The gallbladder wall is minimally thickened measuring up to 3.5 mm. This is probably due to the surrounding ascites, however. The common bile duct is normal in diameter. Sonographic Chavira's sign was reported to be negative. The liver echotexture is grossly unremarkable. No discrete hepatic mass is appreciated. Portal venous flow is hepatopedal. The visualized pancreas is unremarkable. The aorta and IVC are grossly unremarkable. The spleen is unremarkable. There is a 1 cm simple appearing left renal cyst. The kidneys are grossly unremarkable, otherwise. IMPRESSION: 1.Ascites. 2.Minimal gallbladder wall thickening that is probably related to the surrounding ascites rather than inflammation. 3.Essentially unremarkable, otherwise. Electronically signed by Jonah Michel 01/10/2017 1:14 PM
--- NOTE | 2017-01-10 15:24 | PROGRESS NOTE ---
DATE: 01/10/2017 SUBJECTIVE: The patient states that she feels a lot better this morning. She is not feeling nauseous and her abdominal pain is slowly improving. OBJECTIVE: Vital Signs: Temperature 98 degrees, blood pressure 127/76, heart rate 79, respirations 20, O2 saturations 95% on room air. General: Is a elderly female lying in bed in no acute distress. Head: Normocephalic, atraumatic. Heart: S1, S2. Normal. Regular rate and rhythm. Lungs: Clear to auscultation bilaterally. Abdomen: Positive bowel sounds. Soft. Mild epigastric tenderness. Extremities: No edema, cyanosis. Neuro: The patient is alert and oriented x3. LABS: White blood cell count 4, hemoglobin 11, hematocrit 34, platelets 301,000. Sodium 132, potassium 3.9, chloride 92, CO2 27, BUN 4, creatinine 0.3 , glucose 105, lipase 604, amylase 972. ASSESSMENT AND PLAN: 1. Alcoholic pancreatitis. Slowly improving. Continue with IV fluids. Will try the patient on a clear liquid diet. 2. Alcohol dependence. Aware. Continue on Librium and p.r.n. Ativan. 3. Hypertension. Controlled. 4. Tobacco dependence. Continue on the NicoDerm patch. 5. Deep vein thrombosis prophylaxis. Will start the patient on Lovenox. cc: Melanie Marc MD
[2017-01-10] MEDS: LOVENOX SUBQ SCH (17:02)
[2017-01-10] MEDS: LR 1,000 ML IV SCH (17:03)
[2017-01-11] MEDS: LR 1,000 ML IV SCH ×3 (04:44→16:07)
[2017-01-11] MEDS: LIBRIUM PO SCH ×4 (04:45→23:11)
[2017-01-11] MEDS: ZOFRAN IV PRN (06:33)
[2017-01-11] MEDS: DILAUDID IV PRN ×3 (06:33→18:11)
[2017-01-11] MEDS: NEXIUM IV SCH (06:34)
[2017-01-11] MEDS: ATIVAN IV PRN ×3 (06:34→18:12)
[2017-01-11 07:02] LABS: AMYLASE 754 U/L (20-200); LIPASE 572 U/L (13-60)
[2017-01-11 07:33] LABS: BASO% 0.4 % (0.0-0.8); EOS# 0.17 X1000 (0.0-0.7); EOS% 3.1 % (0.0-10.0); HEMATOCRIT 32.9 % (37.0-47.0); HEMOGLOBIN 10.5 g/dL (12.0-16.0); LYMPH% 21.6 % (20.5-51.1); MANUAL DIFF NEEDED? YES; MCH 28.1 PG (27-31); MCHC 31.9 g/dL (33-37); MONO# 0.58 X1000 (0.11-0.59); MONO% 10.4 % (1.7-9.3); MPV 9.2 FL (7.4-10.4); NEUT% 64.5 % (42.2-75.2); PLT 282 X1000 (130-400); RBC 3.74 XMIL (4.2-5.4)
[2017-01-11 09:02] LABS: EOS 3 % (1-10); LYMPHS 2 % (21-51); MONO 6 % (1-9)
[2017-01-11 09:07] LABS: AGAP 15; ALBUMIN 2.7 g/dL (3.5-5.0); ALKALINE PHOSPHATASE 103 U/L (32-104); BUN 3 mg/dL (8-22); CALCIUM 7.9 mg/dL (8.8-10.2); CHLORIDE 89 mmol/L (98-107); COSMO 255; GOT 42 U/L (10-30); GPT 13 U/L (10-36); MAGNESIUM 1.5 mg/dL (1.5-2.7); POTASSIUM 3.6 mmol/L (3.5-5.1); SODIUM 130 mmol/L (136-145); TCO2 26 mmol/L (25-35); TOTAL BILIRUBIN 0.15 mg/dL (0.20-1.00); TOTAL PROTEIN 5.9 g/dL (6.3-8.3)
[2017-01-11] MEDS: COREG PO SCH ×2 (09:23→23:11)
[2017-01-11] MEDS: NICODERM PATCH TD SCH (09:23)
[2017-01-11] MEDS: SODIUM CHLORIDE 0.9% INJ SCH (12:56)
[2017-01-11] MEDS: LOVENOX SUBQ SCH (16:12)
--- NOTE | 2017-01-11 19:01 | PROGRESS NOTE ---
DATE: 01/11/2017 SUBJECTIVE: Patient has no focal complaints. OBJECTIVE: Vital signs: Blood pressure 129/68, heart rate 73, respiratory rate 18, temperature 98.5 degrees, 93% on room air. Cardiovascular: Regular rate and rhythm. Pulmonary: Bilateral breath sounds. Clear to auscultation. GI: Soft, nontender, nondistended. Bowel sounds are positive. LABORATORY DATA: White count 5, hemoglobin and hematocrit 10 and 32, platelets 282,000. Sodium 130, amylase, lipase 754 and 572 down from 1688 and 1381. PROBLEM LIST: 1. Acute pancreatitis alcoholic associated. Clinically she is improving. I will continue IV fluids. Pain control. We will advance her diet. 2. Alcohol dependence. She is on a Librium taper. Will continue that. 3. Hypertension. Appears to be stable. DISPOSITION: Pending clinical improvement. We will continue to follow. Discharge possibly 1-2 days. cc: MD Melanie Day MD
[2017-01-12] MEDS: LR 1,000 ML IV SCH ×4 (03:33→18:40)
[2017-01-12] MEDS: NEXIUM IV SCH ×2 (05:45→06:09)
[2017-01-12] MEDS: ATIVAN IV PRN ×2 (05:53→20:53)
[2017-01-12 06:11] LABS: MANUAL DIFF NEEDED? NO
[2017-01-12 06:24] LABS: BASO% 0.7 % (0.0-0.8); EOS# 0.13 X1000 (0.0-0.7); HEMATOCRIT 30.9 % (37.0-47.0); IMM GRAN# 0.02 X1000 (0.0-0.04); IMM GRAN% 0.5 % (0.0-0.5); LYMPH# 1.16 X1000 (1.2-3.4); LYMPH% 26.7 % (20.5-51.1); MCH 28.1 PG (27-31); MCHC 32.4 g/dL (33-37); MCV 86.8 FL (81-99); MONO# 0.63 X1000 (0.11-0.59); MONO% 14.5 % (1.7-9.3); MPV 9.1 FL (7.4-10.4); NEUT% 54.6 % (42.2-75.2); PLT 218 X1000 (130-400); RBC 3.56 XMIL (4.2-5.4)
[2017-01-12 06:40] LABS: AGAP 16; ALBUMIN 2.4 g/dL (3.5-5.0); ALKALINE PHOSPHATASE 86 U/L (32-104); BUN 2 mg/dL (8-22); CALCIUM 7.6 mg/dL (8.8-10.2); CHLORIDE 89 mmol/L (98-107); COSMO 256; GOT 34 U/L (10-30); GPT 12 U/L (10-36); POTASSIUM 3.4 mmol/L (3.5-5.1); SODIUM 131 mmol/L (136-145); TCO2 26 mmol/L (25-35); TOTAL BILIRUBIN 0.27 mg/dL (0.20-1.00); TOTAL PROTEIN 5.7 g/dL (6.3-8.3)
[2017-01-12] MEDS: NICODERM PATCH TD SCH (08:31)
[2017-01-12] MEDS: COREG PO SCH ×2 (08:31→20:57)
[2017-01-12] MEDS: DILAUDID IV PRN ×3 (08:39→16:46)
[2017-01-12] MEDS: LIBRIUM PO SCH ×4 (08:39→20:59)
[2017-01-12] MEDS: ZOFRAN IV PRN (08:39)
[2017-01-12] MEDS: LOVENOX SUBQ SCH (14:28)
[2017-01-12] MEDS ORDERED: DUONEB (A & A) INH PRN (18:05)
[2017-01-12] MEDS: DUONEB (A & A) INH SCH ×2 (18:21→22:57)
--- NOTE | 2017-01-12 18:25 | PROGRESS NOTE ---
DATE: 01/12/2017 SUBJECTIVE: Patient feels improved. She does not appear tremulous. Her nausea and vomiting has resolved. OBJECTIVE DATA: Blood pressure 136/72, heart rate 101, respiratory rate 20, temperature 98.4 degrees, 88% on room air. She has been dropping her O2 saturations a little bit.Cardiovascular: She is tachy. Pulmonary: She has diffuse rales up to at least 2/3 of her lung healy bilaterally. GI: Soft, nontender, nondistended. Bowel sounds are positive. LABORATORY DATA: White count 4, hemoglobin and hematocrit 10 and 30. Platelets 218,000. Sodium 131, potassium 3.4. Lipase is down to 284. PROBLEM LIST: 1. Acute pancreatitis recurrent with alcohol induced pancreatitis. She began drinking after her last discharge with pancreatitis. She did have some ascites. 2. We will continue supportive care. She is on pain medication and I am going to decrease her fluids because I think there are some issues with volume overload. 3. Alcohol withdrawal. We will continue to taper her Librium. 4. Volume overload versus COPD exacerbation. I am going to start some Lasix, decrease her fluids and get a chest x-ray and follow clinically. It is certainly possible that the patient has some underlying cardiomyopathy especially with her severe alcohol use but we will continue to follow. DISPOSITION: Pending her clinical course. cc: Adonis Nagy MD
--- NOTE | 2017-01-12 18:26 | Diag Imaging Result Doc PS360 ---
EXAM: CHEST-PORTABLE HISTORY: pulmonary edema TECHNIQUE: Portable upright COMPARISON: 12/05/2016 FINDINGS: The lungs are well expanded. The heart is not enlarged. The vessels are not distended. No pneumonia. No pleural effusions identified. IMPRESSION: No pulmonary edema. Electronically signed by Feliciano Morrison 01/12/2017 6:24 PM
[2017-01-12] MEDS: LASIX IV SCH (18:38)
[2017-01-13] MEDS: DUONEB (A & A) INH SCH ×4 (03:45→21:10)
[2017-01-13] MEDS: NEXIUM IV SCH ×2 (05:44→06:04)
[2017-01-13] MEDS: LASIX IV SCH (05:44)
[2017-01-13 05:59] LABS: MANUAL DIFF NEEDED? NO
[2017-01-13 06:17] LABS: BASO% 0.5 % (0.0-0.8); EOS# 0.09 X1000 (0.0-0.7); EOS% 2.4 % (0.0-10.0); HEMATOCRIT 31.3 % (37.0-47.0); HEMOGLOBIN 10.2 g/dL (12.0-16.0); IMM GRAN# 0.02 X1000 (0.0-0.04); IMM GRAN% 0.5 % (0.0-0.5); LYMPH# 0.99 X1000 (1.2-3.4); LYMPH% 26.3 % (20.5-51.1); MCH 27.5 PG (27-31); MCHC 32.6 g/dL (33-37); MCV 84.4 FL (81-99); MONO# 0.58 X1000 (0.11-0.59); MONO% 15.4 % (1.7-9.3); MPV 9.1 FL (7.4-10.4); NEUT% 54.9 % (42.2-75.2); PLT 301 X1000 (130-400); RBC 3.71 XMIL (4.2-5.4)
[2017-01-13 06:57] LABS: AGAP 11; ALBUMIN 2.6 g/dL (3.5-5.0); ALKALINE PHOSPHATASE 86 U/L (32-104); BUN 1 mg/dL (8-22); CALCIUM 7.8 mg/dL (8.8-10.2); CHLORIDE 87 mmol/L (98-107); COSMO 258; GOT 23 U/L (10-30); GPT 12 U/L (10-36); POTASSIUM 2.6 mmol/L (3.5-5.1); SODIUM 131 mmol/L (136-145); TCO2 33 mmol/L (25-35); TOTAL BILIRUBIN 0.33 mg/dL (0.20-1.00); TOTAL PROTEIN 5.9 g/dL (6.3-8.3)
[2017-01-13] MEDS ORDERED: KLOR-CON PO ONE (09:57)
[2017-01-13] MEDS: NICODERM PATCH TD SCH (10:03)
[2017-01-13] MEDS: LR 1,000 ML IV SCH (10:03)
[2017-01-13] MEDS: ATIVAN IV PRN ×2 (10:03→20:55)
[2017-01-13] MEDS: COREG PO SCH ×2 (10:03→20:55)
[2017-01-13] MEDS: LIBRIUM PO SCH ×2 (10:09→20:55)
[2017-01-13] MEDS: POTASSIUM CHLORIDE 20 MEQ/SWI 20 MEQ/100 ML IVPB IV SCH ×2 (11:01→13:05)
[2017-01-13] MEDS: DILAUDID IV PRN ×2 (11:36→18:10)
[2017-01-13] MEDS: LOVENOX SUBQ SCH (15:51)
[2017-01-13] MEDS ORDERED: LR 1,000 ML IV SCH (17:59)
[2017-01-13] MEDS: ZOFRAN IV PRN (18:11)
--- NOTE | 2017-01-13 18:15 | PROGRESS NOTE ---
DATE: 01/13/2017 SUBJECTIVE: Patient has no focal complaints. OBJECTIVE: Vital signs: Blood pressure 100/68, heart rate of 100, respiratory rate 18, temperature 95 degrees, 94% on 2 L. Cardiovascular: Regular rate and rhythm. Pulmonary: Bilateral breath sounds. Clear to auscultation. GI: Soft, nontender, nondistended. Bowel sounds are positive. LABORATORY DATA: Potassium 2.6. Sodium 131. BUN of 1. Calcium 7.8. Lipase down to 197. PROBLEM LIST: 1. Acute pancreatitis, alcoholic associated. Clinically she seems improved. Her numbers are improved. She is tolerating her diet. 2. Alcohol abuse with withdrawal syndrome. She is stable on her current medications. 3. Dyspnea. Apparently chest x-ray looked okay. She tolerated Lasix. She seems like she is breathing better today. I think we can probably KVO her fluids and follow clinically. cc: Adonis Nagy MD
[2017-01-14] MEDS: DUONEB (A & A) INH SCH ×4 (03:57→21:00)
[2017-01-14] MEDS: NEXIUM IV SCH ×2 (05:39→06:40)
[2017-01-14 06:06] LABS: HEMATOCRIT 30.5 % (37.0-47.0); MCH 28.5 PG (27-31); MCHC 32.8 g/dL (33-37); MCV 86.9 FL (81-99); MPV 9.1 FL (7.4-10.4); RBC 3.51 XMIL (4.2-5.4)
[2017-01-14 06:38] LABS: AGAP 11; BUN 3 mg/dL (8-22); CHLORIDE 91 mmol/L (98-107); COSMO 267; POTASSIUM 2.9 mmol/L (3.5-5.1); SODIUM 135 mmol/L (136-145); TCO2 33 mmol/L (25-35)
[2017-01-14] MEDS: COREG PO SCH ×2 (09:54→22:59)
[2017-01-14] MEDS: LIBRIUM PO SCH ×2 (09:54→22:59)
[2017-01-14] MEDS: NICODERM PATCH TD SCH (09:54)
[2017-01-14] MEDS ORDERED: KLOR-CON PO ONE (10:48)
[2017-01-14] MEDS: POTASSIUM CHLORIDE 20 MEQ/SWI 20 MEQ/100 ML IVPB IV SCH ×2 (11:14→12:49)
[2017-01-14] MEDS: LOVENOX SUBQ SCH (15:28)
[2017-01-14] MEDS: ZOFRAN IV PRN (22:59)
[2017-01-14] MEDS: DILAUDID IV PRN (22:59)
[2017-01-15] MEDS: DUONEB (A & A) INH SCH ×2 (04:05→09:36)
[2017-01-15] MEDS: NEXIUM IV SCH (06:08)
[2017-01-15] MEDS: SODIUM CHLORIDE 0.9% INJ SCH (06:08)
[2017-01-15 08:05] VITALS: BP 135/67
[2017-01-15] MEDS: COREG PO SCH (08:57)
[2017-01-15] MEDS: LIBRIUM PO SCH (08:57)
[2017-01-15] MEDS: NICODERM PATCH TD SCH (08:58)
--- NOTE | 2017-02-11 00:52 | DISCHARGE SUMMARY ---
ADMISSION DATE: 01/09/2017 DISCHARGE DATE: 01/15/2017 DISCHARGE DIAGNOSES: 1. Pancreatitis. 2. Alcohol abuse. 3. Withdrawal syndrome. 4. Dyspnea. HISTORY AND HOSPITAL COURSE: Briefly, this is a 56-year-old female, admitted for pancreatitis, with a history of pancreatitis and alcohol abuse. She drinks half a case of beer a day, has been doing so since about 14 years of age. She clinically improved. Presented with a lipase elevation of 1381, and an amylase of 1688. She was placed on IV fluids, analgesics. Additionally, she had been placed on withdrawal medication. By the , she was still having some issues. Her diet was advanced. By the , she was doing okay. On the , had a long discussion about alcohol abstinence. Fluids were decreased because of some shortness of breath issue. By the , she was doing well. By the , she had improved. DISCHARGE CONDITION: Stable. DISCHARGE MEDICATIONS: Tessalon p.r.n., Pulmicort b.i.d., Librium taper, [place] p.r.n., NicoDerm patch, Prilosec 40 daily, and Zofran. Time TIME SPENT: 32 minutes for discharge. cc: Adonis Nagy MD
--- NOTE | 2017-02-11 03:16 | PROGRESS NOTE ---
DATE: 01/14/2017 SUBJECTIVE: The patient felt improved. She was wanting to go home. OBJECTIVE: Vital Signs: Blood pressure 125/70, heart rate 89, respiratory rate 20, temperature 98.8 degrees. Cardiovascular: Regular rate and rhythm. Pulmonary: Bilateral breath sounds. Clear to auscultation. Gastrointestinal: Soft, nontender, nondistended. Bowel sounds are positive. LABORATORY STUDIES: Hemoglobin and hematocrit of 10 and 30. Lipase was 497. ASSESSMENT AND PLAN: 1. Acute pancreatitis. Clinically, she has improved. We will continue to wean pain medication and analgesics. 2. Alcohol withdrawal syndrome. She appears to be stable on current dosage. 3. Disposition: Likely home in the next 24 hours if stable. cc: Adonis Nagy MD
== END 2017-01-15 11:21 | disposition home or self-care (01) ==
LOC: SUPCPDRO → ED 14:51 → SUATTDRO 20:52 → 4N 20:52
PROVIDERS: ATTEND Internal Medicine